=== PATIENT | male | born 1965 | race Hispanic/Latino ===

== ENCOUNTER 2023-03-27 14:06 | Emergency (ER) | payer BC ==
[~2023-03-27] VITALS: Ht 157.5 cm; Wt 70.1 kg
[2023-03-27 16:39] LABS: INFLUENZA B NAA NEGATIVE (NEGATIVE); RESPIRATORY SYNCYTIAL VIR NAA NEGATIVE (NEGATIVE)
[2023-03-27 17:09] VITALS: BP 117/79
== END 2023-03-27 17:11 | disposition home or self-care (01) ==
LOC: ED 14:06
PROVIDERS: Emergency Medicine
DX: J02.9 Acute pharyngitis, unspecified (principal); Z20.822 Contact with and (suspected) exposure to COVID-19
CPT/HCPCS: 87081; 87502; 87651; 99283; C9803; U0002